=== PATIENT | female | born 1955 | race Caucasian/White ===

== ENCOUNTER 2019-01-28 14:46 | Emergency (ER) | payer OTHER ==
[~2019-01-28] VITALS: Ht 165.1 cm; Wt 107.5 kg
[2019-01-28] MEDS ORDERED: XARELTO20 MG PO (15:10)
[2019-01-28] MEDS ORDERED: FUROSEMIDE 20 M20 MG PO (15:10)
[2019-01-28] MEDS ORDERED: BUPROPION XL300 MG PO (15:11)
[2019-01-28] MEDS ORDERED: MORGIDOX50 MG PO (15:11)
[2019-01-28] MEDS ORDERED: TOPROL XL25 MG PO (15:12)
[2019-01-28] MEDS ORDERED: AMITRIPTYLINE H50 M2 PO (15:13)
[2019-01-28] MEDS ORDERED: RANITIDINE 150150 MG PO (15:13)
[2019-01-28] MEDS ORDERED: COZAAR 25 MG TA25 M2 PO (15:14)
[2019-01-28] MEDS ORDERED: LIPITOR 40 MG T40 M1 PO (15:14)
[2019-01-28 15:38] LABS: ABSOLUTE BASOPHILS 0.1 thou/uL (0.0-0.2); ABSOLUTE EOSINOPHILS 0.2 thou/uL (0.0-0.7); ABSOLUTE LYMPHOCYTES 1.6 thou/uL (0.8-5.3); ABSOLUTE MONOCYTES 0.4 thou/uL (0.0-1.2); ABSOLUTE NEUTROPHILS 6.6 thou/uL (1.6-8.1); BASOPHILS 0.8 %; EOSINOPHILS 2.7 %; HEMATOCRIT 40.5 % (37.0-47.0); HEMOGLOBIN 13.6 gm/dL (12.0-15.0); LYMPHOCYTES 17.8 %; MCH 29.7 pg (26.0-34.0); MCHC 33.5 g/dL (28.0-37.0); MCV 88.5 fL (80.0-100.0); MONOCYTES 4.4 %; MPV 7.4 fl. (7.2-11.1); NUCLEATED RBCS 0 /100WBC; PLATELET COUNT* 388 thou/uL (150-400); POLYS 74.3 %; RBC 4.57 mil/uL (4.20-5.00); RDW-CV 13.8 % (10.5-14.5); WBC 8.9 thou/uL (4.0-11.0)
[2019-01-28 15:55] LABS: CALCIUM 9.9 mg/dL (8.5-10.1); CREATININE 0.9 mg/dL (0.6-1.3); POTASSIUM 3.6 mmol/L (3.5-5.1)
[2019-01-28 15:59] LABS: ALBUMIN 3.9 g/dL (3.4-5.0); TOTAL BILIRUBIN 0.4 mg/dL (<0.1-1.0); TOTAL PROTEIN 8.1 g/dL (6.4-8.2)
[2019-01-28] MEDS ORDERED: CIPRO500 M1 PO (17:10)
[2019-01-28] MEDS ORDERED: ONDANSETRON HCL4 M2 PO (17:10)
[2019-01-28] MEDS ORDERED: FLAGYL500 M1 PO (17:10)
[2019-01-28 17:21] LABS: URINE BILIRUBIN NEGATIVE (Negative); URINE BLOOD NEGATIVE (Negative); URINE CLARITY CLEAR; URINE COLOR YELLOW; URINE GLUCOSE-RANDOM NEGATIVE (Negative); URINE KETONES NEGATIVE (Negative); URINE LEUKOCYTES-REFLEX NEGATIVE (Negative); URINE NITRITE-REFLEX NEGATIVE (Negative); URINE PROTEIN NEGATIVE (Negative); URINE UROBILINOGEN 0.2 E.U./dl (0.2-1.0)
[2019-01-28 17:25] VITALS: BP 128/60
--- NOTE | 2019-01-29 10:19 | EKG ---
[place] [address] ELECTROCARDIOGRAM REPORT Name: YOU HIGGINS Room: [facility]#: [id number] Admission: 01/28/19 Attend Phys: Discharge: 01/28/19 Date of : 55 Report #: [id number] THIS REPORT FOR: //name// [facility] ED Test Date: 2019-01-28 Test Time: 16:53:09 Pat Name: YOU HIGGINS Department: Room: Gender: F [employer]ulatory [employer] Specialist: GIA : [id number] Requested By: Prema Peralta Order Number: [id number] MD: Rory Morillo Measurements Intervals [place] Rate: 91 P: 87 LA: 203 QRS: -8 QRSD: 100 T: 28 QT: 383 QTc: 472 Interpretive Statements Sinus rhythm Consider left atrial enlargement LVH with secondary repolarization abnormality Anterior infarct, old No previous ECG available for comparison Electronically Signed On 01-29-2019 10:19:35 [employer] by Rory Morillo [email or web address] <ELECTRONICALLY SIGNED> By: Rory Morillo MD, [facility] 01/29/19 1019 [id number] Rory Morillo MD, FACC /EPI
== END 2019-01-28 17:46 | disposition home or self-care (01) ==
LOC: M.ERS 14:46
PROVIDERS: Physician Assistant
DX: K57.92 Diverticulitis of intestine, part unspecified, without perforation or abscess without bleeding (principal); K21.9 Gastro-esophageal reflux disease without esophagitis; I10 Essential (primary) hypertension; Z90.710 Acquired absence of both cervix and uterus; Z96.653 Presence of artificial knee joint, bilateral; Z88.2 Allergy status to sulfonamides; Z88.5 Allergy status to narcotic agent; Z88.1 Allergy status to other antibiotic agents; Z90.49 Acquired absence of other specified parts of digestive tract